=== PATIENT | male | born 1955 | race Caucasian/White ===

== ENCOUNTER 2016-11-28 07:56 | Day surgery (SDC) | payer OTHER ==
[~2016-11-28] VITALS: Ht 177.8 cm; Wt 78.4 kg
[2016-11-28 07:49] VITALS: BP 146/71; PULSE 52; RESP 18
[2016-11-28] MEDS ORDERED: NO MEDS (09:13)
[2016-11-28] MEDS ORDERED: FENTAnyl 50 MCG/ML VIAL ONE (10:42)
[2016-11-28] MEDS ORDERED: MIDAZOLAM 1 MG/ML 2 ML INJ ONE ×3 (10:42)
--- NOTE | 2016-11-28 10:43 | OPPN ---
Date/Time of Note Date/Time of Note DATE: 11/28/16 TIME: 10:41 Operative Report Preoperative Diagnosis Positive occult blood in stool Postoperative Diagnosis 3 sigmoid colon polyps were removed Operation/Procedure Performed Colonoscopy biopsy and polypectomy Surgeon see signature line personal injury legal assistant None Anesthesia: moderate sedation Estimated blood loss: none Transfusion Required none Specimen Colon polyps Grafts/Implants none Complications none AMA MARCH MD Nov 28, 2016 10:43
[2016-11-28 11:10] VITALS: BP 100/62; PULSE 74; RESP 20
--- NOTE | 2016-11-28 12:48 | GILP ---
DATE OF PROCEDURE: 11/28/2016 PROCEDURE PERFORMED: Colonoscopy, biopsy and polypectomy. SURGEON: Haven Leon MD. PREOPERATIVE DIAGNOSIS: Positive occult blood in stool. POSTOPERATIVE DIAGNOSES: 1. Colonoscopy all the way to the cecum. 2. The patient had 3 sigmoid colon polyps and 2 of them were removed using the snare and electrocautery and other 1 with biopsy forceps. 3. Internal hemorrhoids. INDICATIONS FOR PROCEDURE: The patient is a 61-year-old male patient who was noted to have positive occult blood in stool. The patient was scheduled for colonoscopy for further evaluation. The procedure and possible complications were well explained to the patient. He understood and consented to the procedure. DESCRIPTION OF PROCEDURE: Under the influence of fentanyl and Versed, the colonoscope was carefully introduced in the rectum. Under direct vision, it was advanced all the way to the cecum. FINDINGS: The patient had 3 sigmoid colon polyps and 2 of them were removed using the snare and electrocautery. There was another flat polyp and it was removed with biopsy forceps. He was noted to have internal hemorrhoids. He tolerated the procedure very well. There was no complications from the procedure. At the end of procedure, he was awake with stable vital signs and he was discharged home in the care of his family. IMPRESSION: 1. Colonoscopy all the way to the cecum. 2. The patient had 3 sigmoid colon polyps and 2 of them were removed using the snare and electrocautery and other 1 with biopsy forceps. 3. Internal hemorrhoids. PLAN: 1. Await histopathology report. 2. Next screening colonoscopy in 5 years. Dictated By: MD KALE Escobedo/ferny/raissa /Document#: [id number]
== END 2016-11-28 13:01 | disposition home or self-care (01) ==
LOC: GIL 07:56
PROVIDERS: ATTEND Internal Medicine Gastroenterology
DX: K63.5 Polyp of colon (principal); K64.8 Other hemorrhoids; R19.5 Other fecal abnormalities
CPT/HCPCS: 45380; 88305; J2250; J3010